=== PATIENT | female | born 1980 | race Caucasian/White ===

== ENCOUNTER → 2018-01-07 | Day surgery (SDC) | payer OTHER | END | disposition home or self-care (01) | LOC: AMB-ENDOS 10:01 | DX: K44.9 Diaphragmatic hernia without obstruction or gangrene (principal); K29.80 Duodenitis without bleeding ==

== ENCOUNTER 2018-06-23 07:42 | Day surgery (SDC) | payer OTHER ==
[~2018-06-23 07:42] MED LIST: SYNTH PO
[2018-06-23] MEDS ORDERED: POLY119PG PO (15:07)
[2018-06-23] MEDS ORDERED: PERCOCET 5-3251 EACH PO (15:07)
[2018-06-23] MEDS ORDERED: SURFAK240 M1 PO (15:07)
== END 2018-06-23 18:20 | disposition home or self-care (01) ==
LOC: CIR.AMB 07:42
DX: K80.10 Calculus of gallbladder with chronic cholecystitis without obstruction (principal); K42.9 Umbilical hernia without obstruction or gangrene; K43.2 Incisional hernia without obstruction or gangrene